=== PATIENT | female | born 1955 | race Caucasian/White ===

== ENCOUNTER 2023-01-08 04:18 | Emergency (ER) | payer MEDICARE, OTHER ==
[2023-01-08 04:42] LABS: APPEARANCE,URINE SLIGHTLY CLOUDY (CLEAR); BILIRUBIN,URINE SMALL (NEGATIVE); COLOR,URINE DARK YELLOW (YELLOW); GLUCOSE,URINE NEGATIVE (NEGATIVE); KETONES,URINE NEGATIVE (NEGATIVE); LEUKOCYTE ESTERASE,URINE NEGATIVE (NEGATIVE); NITRITE,URINE NEGATIVE (NEGATIVE); OCCULT BLOOD,URINE LARGE (NEGATIVE); PH,URINE 5.5 (5.0-8.0); PROTEIN,URINE 30 mg/dL (NEGATIVE); UROBILINOGEN,URINE 0.2 EU/dL (0.2)
[2023-01-08 04:49] LABS: BACTERIA,URINE RARE /HPF (NOT SEEN); RBC,URINE 50-75 /HPF (NOT SEEN); SQUAMOUS EPITHELIAL CELLS,UR FEW /HPF (NOT SEEN); WBC,URINE 0-5 /HPF (NOT SEEN)
[2023-01-08 04:50] LABS: MUCUS,URINE RARE /LPF (NOT SEEN)
[2023-01-08] MEDS ORDERED: Ciprofloxacin 250 MG Tab PO ONE (04:54)
== END 2023-01-08 05:05 | disposition home or self-care (01) ==
LOC: VM.ED 04:18
DX: N39.0 Urinary tract infection, site not specified (principal)
CPT/HCPCS: 81001; 99284; A9270